=== PATIENT | male | born 1990 | race Caucasian/White ===

== ENCOUNTER 2022-02-18 22:39 | Inpatient (IN) ==
[2022-02-19 03:47] LABS: Basophils # 0.1 K/mcL (0.0-0.2); Basophils % 0.8 %; Eosinophils # 0.4 K/mcL (0.0-0.6); Eosinophils % 4.8 %; Hematocrit 45.1 % (37.5-50.1); Hemoglobin 13.9 g/dL (12.9-16.9); Immature Granulocytes % 0.3 % (0-4); Lymphocytes # 2.6 K/mcL (0.6-4.6); Lymphocytes % 28.4 %; Mean Corpuscular HGB Conc 30.8 g/dL (31.6-35.5); Mean Corpuscular Hemoglobin 24.3 pg (28.0-33.3); Mean Platelet Volume 10.7 fL (9.4-12.4); Monocytes # 0.6 K/mcL (0.0-1.3); Monocytes % 6.9 %; Neutrophils # 5.3 K/mcL (1.6-8.9); Platelet Count 250 K/mcL (140-400); Red Blood Count 5.71 M/mcL (4.19-5.50); Red Cell Distribution Width 14.6 % (11.5-14.5); Segmented Neutrophils % 58.8 %
[2022-02-19 03:56] LABS: INR 1.1; Prothrombin Time 11.9 Seconds (9.4-12.1)
[2022-02-19 03:59] LABS: Activated Partial Thrombo Time 35.2 Seconds (26.0-36.0)
[2022-02-19 04:00] LABS: Amphetamine Screen,Urine Negative ng/mL (Cutoff=1000); Barbiturate Screen,Urine Negative ng/mL (Cutoff=200); Benzodiazepines Screen,Urine Negative ng/mL (Cutoff=200); Cannabinoid Screen,Urine Negative ng/mL (Cutoff = 50); Cocaine Screen,Urine Negative ng/mL (Cutoff= 300); Opiate Screen,Urine Negative ng/mL (Cutoff=300); Phencyclidine Screen,Urine Negative ng/mL (Cutoff=25)
[2022-02-19] MEDS ORDERED: Ondansetron 4 MG/2 ML VIAL IVP PRN (04:00)
[2022-02-19] MEDS ORDERED: Naloxone 0.4 MG/ML INJ IVP PRN (04:00)
[2022-02-19] MEDS ORDERED: Acetaminophen 325 MG TABLET PO PRN (04:00)
[2022-02-19 04:08] LABS: Albumin 4.1 g/dL (3.5-5.7); Albumin/Globulin Ratio 1.3 (1.1-2.2); Bilirubin,Total 0.5 mg/dL (0.3-1.0); Calcium 9.6 mg/dL (8.6-10.3); Chol/HDL Ratio 5.7 (0-4.9); Globulin 3.1 g/dL (2.4-3.5); Magnesium 1.9 mg/dL (1.6-2.6); Total Protein 7.2 g/dL (6.4-8.9); Troponin I 0.03 ng/mL (< 0.04)
[2022-02-19] MEDS ORDERED: Morphine Sulfate 2 MG/ML SYRINGE IVP PRN (04:13)
[2022-02-19] MEDS: *HR* Heparin 5,000 UNIT/ML VIAL SQ SCH ×3 (05:39→20:52)
[2022-02-19] MEDS: cloNIDine HCL 0.1 MG TABLET PO SCH ×2 (05:39→20:52)
[2022-02-19] MEDS ORDERED: Regadenoson 0.4 MG/5 ML SYRINGE IVP ONE (08:02)
[2022-02-19 09:32] LABS: Hematocrit 41.6 % (37.5-50.1); Hemoglobin 13.1 g/dL (12.9-16.9); Mean Corpuscular HGB Conc 31.5 g/dL (31.6-35.5); Mean Corpuscular Hemoglobin 24.5 pg (28.0-33.3); Mean Corpuscular Volume 77.9 fL (83.0-100.0); Mean Platelet Volume 10.1 fL (9.4-12.4); Platelet Count 263 K/mcL (140-400); Red Blood Count 5.34 M/mcL (4.19-5.50); Red Cell Distribution Width 14.6 % (11.5-14.5); White Blood Count 8.7 K/mcL (4.3-11.1)
[2022-02-19 09:53] LABS: Calcium 9.1 mg/dL (8.6-10.3); Potassium 3.8 mEq/L (3.5-5.1)
[2022-02-19] MEDS: Isosorbide MONOnitrate (24 HR) 30 MG TAB.ER.24H PO SCH (13:25)
[2022-02-19] MEDS: Aspirin Enteric Coated 81 MG Tablet PO SCH (13:25)
[2022-02-19 16:44] LABS: Estimated Average Glucose 117 mg/dl; Hemoglobin A1C 5.7 %
[2022-02-19] MEDS: carvediloL 6.25 MG TABLET PO SCH (18:30)
[2022-02-20 03:09] LABS: Hematocrit 39.4 % (37.5-50.1); Hemoglobin 12.4 g/dL (12.9-16.9); Mean Corpuscular HGB Conc 31.5 g/dL (31.6-35.5); Mean Corpuscular Hemoglobin 24.8 pg (28.0-33.3); Mean Corpuscular Volume 78.8 fL (83.0-100.0); Mean Platelet Volume 9.8 fL (9.4-12.4); Platelet Count 252 K/mcL (140-400); Red Cell Distribution Width 14.5 % (11.5-14.5); White Blood Count 10.7 K/mcL (4.3-11.1)
[2022-02-20] MEDS: *HR* Heparin 5,000 UNIT/ML VIAL SQ SCH ×3 (05:14→21:15)
[2022-02-20] MEDS: carvediloL 6.25 MG TABLET PO SCH ×2 (07:29→16:36)
[2022-02-20] MEDS: cloNIDine HCL 0.1 MG TABLET PO SCH ×2 (07:30→21:15)
[2022-02-20] MEDS: Isosorbide MONOnitrate (24 HR) 30 MG TAB.ER.24H PO SCH (07:31)
[2022-02-20] MEDS: Aspirin Enteric Coated 81 MG Tablet PO SCH (07:31)
[2022-02-20] MEDS ORDERED: 0.9 % Sodium Chloride 1,000 ML IVC SCH (07:45)
[2022-02-20 14:06] LABS: Calcium 8.9 mg/dL (8.6-10.3); Potassium 4.2 mEq/L (3.5-5.1)
[2022-02-21 03:40] LABS: Calcium 8.7 mg/dL (8.6-10.3); Potassium 3.8 mEq/L (3.5-5.1)
[2022-02-21 03:48] LABS: Basophils # 0.1 K/mcL (0.0-0.2); Basophils % 0.7 %; Eosinophils # 0.3 K/mcL (0.0-0.6); Eosinophils % 3.9 %; Hematocrit 40.5 % (37.5-50.1); Hemoglobin 12.6 g/dL (12.9-16.9); Immature Granulocytes % 0.3 % (0-4); Lymphocytes # 2.4 K/mcL (0.6-4.6); Lymphocytes % 28.1 %; Mean Corpuscular HGB Conc 31.1 g/dL (31.6-35.5); Mean Corpuscular Hemoglobin 24.6 pg (28.0-33.3); Mean Corpuscular Volume 78.9 fL (83.0-100.0); Mean Platelet Volume 10.2 fL (9.4-12.4); Monocytes # 0.6 K/mcL (0.0-1.3); Monocytes % 7.2 %; Neutrophils # 5.2 K/mcL (1.6-8.9); Platelet Count 222 K/mcL (140-400); Red Blood Count 5.13 M/mcL (4.19-5.50); Red Cell Distribution Width 14.2 % (11.5-14.5); Segmented Neutrophils % 59.8 %; White Blood Count 8.7 K/mcL (4.3-11.1)
[2022-02-21] MEDS: *HR* Heparin 5,000 UNIT/ML VIAL SQ SCH ×3 (06:23→20:36)
[2022-02-21] MEDS: Isosorbide MONOnitrate (24 HR) 30 MG TAB.ER.24H PO SCH (09:14)
[2022-02-21] MEDS: cloNIDine HCL 0.1 MG TABLET PO SCH ×2 (09:14→20:36)
[2022-02-21] MEDS: carvediloL 6.25 MG TABLET PO SCH ×2 (09:15→16:29)
[2022-02-21] MEDS: Aspirin Enteric Coated 81 MG Tablet PO SCH (09:15)
[2022-02-21] MEDS ORDERED: *HR* FentaNYL (PF) 100 MCG/2 ML VIAL ONE (12:29)
[2022-02-21] MEDS ORDERED: *HR* Midazolam HCl 2 MG/2 ML VIAL ONE (12:29)
[2022-02-21] MEDS ORDERED: Heparin 1,000 UNITS/500 mL 500 ML ONE (12:30)
[2022-02-21] MEDS ORDERED: Iopamidol - 370 200 ML INFUS..BTL ONE (12:30)
[2022-02-21] MEDS ORDERED: 0.9 % Sodium Chloride 2,000 ML ONE (12:30)
[2022-02-21] MEDS ORDERED: Nitroglycerin 1,000 MCG/5 ML VIAL IV ONE (12:30)
[2022-02-21] MEDS ORDERED: *HR* Heparin 10,000 UNIT/10 ML VIAL ONE ×2 (12:30→13:13)
[2022-02-22 05:35] LABS: Hematocrit 38.6 % (37.5-50.1)
[2022-02-22] MEDS: *HR* Heparin 5,000 UNIT/ML VIAL SQ SCH (05:47)
[2022-02-22 06:06] LABS: BUN/Creatinine Ratio 15 (6-26); Blood Urea Nitrogen 20 mg/dL (6-20); Troponin I 0.06 ng/mL (< 0.04)
[2022-02-22 06:43] VITALS: BP 162/106; PULSE 17; TEMP 98.7; O2SAT 95
[2022-02-22] MEDS: carvediloL 6.25 MG TABLET PO SCH (07:58)
[2022-02-22] MEDS: Aspirin Enteric Coated 81 MG Tablet PO SCH (07:58)
[2022-02-22] MEDS: Isosorbide MONOnitrate (24 HR) 30 MG TAB.ER.24H PO SCH (07:58)
[2022-02-22] MEDS: cloNIDine HCL 0.1 MG TABLET PO SCH (07:58)
== END 2022-02-22 14:00 | disposition home or self-care (01) | DRG 247 ==
LOC: 3BNU → SUATTDRO 02-19 00:55
PROVIDERS: ADMIT Internal Medicine; ATTEND Registered Nurse

== ENCOUNTER 2022-03-06 16:31 | Inpatient (IN) ==
[2022-03-06] MEDS ORDERED: Nitroglycerin 0.4 MG TAB.SUBL SL PRN (23:00)
[2022-03-06] MEDS ORDERED: Morphine Sulfate 2 MG/ML SYRINGE IVP PRN (23:00)
[2022-03-06] MEDS ORDERED: Ondansetron 4 MG/2 ML VIAL IVP PRN (23:10)
[2022-03-06] MEDS ORDERED: Naloxone 0.4 MG/ML INJ IVP PRN (23:10)
[2022-03-06] MEDS ORDERED: Acetaminophen 325 MG TABLET PO PRN (23:10)
[2022-03-06] MEDS: Lurasidone 20 MG TABLET PO SCH (23:57)
[2022-03-07] MEDS ORDERED: *HR* Heparin 5,000 UNIT/ML VIAL IVP PRN ×2 (00:04)
[2022-03-07] MEDS: Heparin 25,000UNIT/250ML 1/2NS 25,000 UNIT/250 ML IV.SOLN IVC SCH (00:33)
[2022-03-07 02:58] LABS: Heparin anti-factor XA UFH < 0.04 IU/mL (0.30-0.70); INR 1.1; Prothrombin Time 11.7 Seconds (9.4-12.1)
[2022-03-07 03:01] LABS: Activated Partial Thrombo Time 33.9 Seconds (26.0-36.0)
[2022-03-07 03:23] LABS: Troponin I 0.06 ng/mL (< 0.04)
[2022-03-07] MEDS ORDERED: *HR* Heparin 5,000 UNIT/ML VIAL SQ SCH (06:00)
[2022-03-07 06:19] LABS: Calcium 9.1 mg/dL (8.6-10.3); Magnesium 1.9 mg/dL (1.6-2.6); Phosphorous 3.4 mg/dL (2.7-4.5)
[2022-03-07] MEDS: Aspirin Enteric Coated 81 MG Tablet PO SCH (07:53)
[2022-03-07] MEDS: cloNIDine HCL 0.1 MG TABLET PO SCH ×2 (07:53→20:37)
[2022-03-07] MEDS: amLODIPine 5 MG TABLET PO SCH (07:53)
[2022-03-07] MEDS: Isosorbide MONOnitrate (24 HR) 60 MG TAB.ER.24H PO SCH (07:57)
[2022-03-07] MEDS ORDERED: carvediloL 6.25 MG TABLET PO SCH (08:00)
[2022-03-07 08:27] LABS: Hematocrit 42.6 % (37.5-50.1); Hemoglobin 13.5 g/dL (12.9-16.9); Mean Corpuscular HGB Conc 31.7 g/dL (31.6-35.5); Mean Corpuscular Hemoglobin 24.3 pg (28.0-33.3); Mean Corpuscular Volume 76.8 fL (83.0-100.0); Mean Platelet Volume 9.8 fL (9.4-12.4); Platelet Count 227 K/mcL (140-400); Red Blood Count 5.55 M/mcL (4.19-5.50); Red Cell Distribution Width 14.2 % (11.5-14.5); White Blood Count 8.8 K/mcL (4.3-11.1)
[2022-03-07] MEDS ORDERED: Iopamidol - 370 200 ML INFUS..BTL ONE (14:08)
[2022-03-07] MEDS ORDERED: Heparin 1,000 UNITS/500 mL 500 ML ONE (14:08)
[2022-03-07] MEDS ORDERED: 0.9 % Sodium Chloride 1,000 ML ONE (14:08)
[2022-03-07] MEDS ORDERED: Nitroglycerin 1,000 MCG/5 ML VIAL IV ONE (14:08)
[2022-03-07] MEDS ORDERED: *HR* Heparin 10,000 UNIT/10 ML VIAL ONE (14:08)
[2022-03-07] MEDS ORDERED: *HR* FentaNYL (PF) 100 MCG/2 ML VIAL ONE (14:15)
[2022-03-07] MEDS ORDERED: *HR* Midazolam HCl 2 MG/2 ML VIAL ONE (14:15)
[2022-03-07] MEDS ORDERED: Tirofiban 12.5 MG/250ML 12.5 MG/250 ML BAG ONE (14:18)
[2022-03-07] MEDS ORDERED: Tirofiban 12.5 MG/250ML 12.5 MG/250 ML BAG IVC SCH (15:15)
[2022-03-07] MEDS: carvediloL 25 MG TABLET PO SCH (17:34)
[2022-03-07] MEDS: Lurasidone 20 MG TABLET PO SCH (20:36)
[2022-03-08] MEDS: Heparin 25,000UNIT/250ML 1/2NS 25,000 UNIT/250 ML IV.SOLN IVC SCH (00:21)
[2022-03-08] MEDS: amLODIPine 5 MG TABLET PO SCH (09:29)
[2022-03-08] MEDS: carvediloL 25 MG TABLET PO SCH ×2 (09:30→16:13)
[2022-03-08] MEDS: Aspirin Enteric Coated 81 MG Tablet PO SCH (09:30)
[2022-03-08] MEDS: cloNIDine HCL 0.1 MG TABLET PO SCH (09:30)
[2022-03-08] MEDS: Isosorbide MONOnitrate (24 HR) 60 MG TAB.ER.24H PO SCH (09:37)
[2022-03-08 10:49] VITALS: BP 154/83; PULSE 62; TEMP 97.8; O2SAT 96
== END 2022-03-08 18:03 | disposition home or self-care (01) | DRG 247 ==
LOC: 3NENU
PROVIDERS: ADMIT Internal Medicine; ATTEND Internal Medicine